=== PATIENT | female | born 1935 | race Two or more races ===

== ENCOUNTER 2024-06-11 15:27 | Emergency (ER) | payer MEDICARE, OTHER ==
[~2024-06-11] VITALS: Ht 170.2 cm; Wt 110.0 kg
[2024-06-11 15:29] VITALS: BP 125/78; PULSE 68; RESP 16; TEMP 98.1; O2SAT 99
[2024-06-11] MEDS: ACETAMINOPHEN 500MG TABLET PO ONE (15:45)
== END 2024-06-11 19:15 | disposition home or self-care (01) ==
LOC: ER 15:27
DX: S01.91XA Laceration without foreign body of unspecified part of head, initial encounter (principal); E78.00 Pure hypercholesterolemia, unspecified; I10 Essential (primary) hypertension; Z98.890 Other specified postprocedural states; W01.0XXA Fall on same level from slipping, tripping and stumbling without subsequent striking against object, initial encounter; Y93.89 Activity, other specified; Y92.89 Other specified places as the place of occurrence of the external cause; Y99.8 Other external cause status
CPT/HCPCS: 12001; 71045; 72170; 99284

== ENCOUNTER → 2024-06-21 | Emergency (ER) | payer MEDICARE, OTHER ==
[~2024-06-21] VITALS: Ht 160 cm; Wt 93.0 kg
[2024-06-21 16:19] VITALS: O2SAT 97
[2024-06-21 16:32] VITALS: BP 158/73; PULSE 78; TEMP 98.7; O2SAT 99
[2024-06-21 17:25] VITALS: RESP 17
== END | disposition home or self-care (01) ==
LOC: ER 16:17
DX: T14.8XXD Other injury of unspecified body region, subsequent encounter (principal); E78.00 Pure hypercholesterolemia, unspecified; I10 Essential (primary) hypertension; Z98.890 Other specified postprocedural states; Z85.9 Personal history of malignant neoplasm, unspecified; X58.XXXD Exposure to other specified factors, subsequent encounter
CPT/HCPCS: 99283